=== PATIENT | female | born 1995 | race Caucasian/White ===

== ENCOUNTER 2019-07-15 03:49 | Outpatient (CLI) | payer BC ==
[2019-07-15 04:49] LABS: URINE AMPHETAMINES SCREEN NEGATIVE; URINE BARBITURATES SCREEN NEGATIVE; URINE BENZODIAZEPINES SCREEN NEGATIVE; URINE COCAINE SCREEN NEGATIVE; URINE MARIJUANA (THC) SCREEN NEGATIVE; URINE PHENCYCLIDINE SCREEN NEGATIVE
[2019-07-15 04:59] LABS: APPEARANCE,URINE SLIGHTLY-CLOUDY; BILIRUBIN,URINE NEGATIVE (NEGATIVE); COLOR,URINE YELLOW; GLUCOSE, URINE NEGATIVE (NEGATIVE); KETONES,URINE NEGATIVE (NEGATIVE); LEUKOCYTE ESTERASE,URINE LARGE (NEGATIVE); NITRITE,URINE NEGATIVE (NEGATIVE); PROTEIN,URINE NEGATIVE (NEGATIVE); URINE SPECIFIC GRAVITY 1.009; UROBILINOGEN,URINE NEGATIVE mg/dL (<2.0)
[2019-07-15 05:09] LABS: URINE METHADONE SCREEN NEGATIVE
[2019-07-15] MEDS ORDERED: HYDROXYZINE PAMOATE 50 MG CAPSULE PO ONE (05:11)
[2019-07-15] MEDS ORDERED: HYDROXYZINE PAMOATE 50 MG CAPSULE ONE (05:12)
== END 2019-07-15 05:58 | disposition home or self-care (01) ==
LOC: LC 03:49
PROVIDERS: ATTEND Specialist
PROC: 4A1HXCZ Monitoring of Products of Conception, Cardiac Rate, External Approach (ICD-10-PCS; principal; 2019-07-15)
DX: O47.03 False labor before 37 completed weeks of gestation, third trimester (principal); Z3A.30 30 weeks gestation of pregnancy
CPT/HCPCS: 80307; 81001

== ENCOUNTER 2019-09-30 03:58 | Inpatient (IN) | payer OTHER, BC, MEDICAID ==
[2019-09-30] MEDS ORDERED: OXYTOCIN 10 UNIT/ML VIAL ONE (04:14)
[2019-09-30] MEDS ORDERED: LIDOCAINE 1% INJ-PF (10 MG/ML) 30 ML SDV ONE (04:14)
[2019-09-30] MEDS ORDERED: RINGERS SOLUTION,LACTATED 1,000 ML IV PRN (04:14)
[2019-09-30] MEDS ORDERED: RINGERS SOLUTION,LACTATED 1,000 ML IV ONE (04:14)
[2019-09-30] MEDS ORDERED: MISOPROSTOL 0.2 MG TABLET ONE (04:14)
[2019-09-30] MEDS ORDERED: OXYTOCIN/NORMAL SALINE 20 UNIT/1,000 ML RTUINJ ONE (04:15)
--- NOTE | 2019-09-30 04:22 | Admission Physical ---
Datetime Report Generated by CPN: 09/30/2019 04:21 CURRENT ADMISSION Chief Complaint: Uterine Contractions Indication for Induction: Not Applicable Admit Impression : Term, Intrauterine ; Active Labor Admit Plan: Admit to Unit; Initiate Labor Protocol ALLERGIES Medication Allergies: No Medication Allergies: No Known Allergies (09/30/2019) Latex: No Latex Allergies OBSTETRICAL HISTORY EDC: 09/20/2019 00:00 : 1 Para: 0 Gestational Diabetes: No Rh Sensitization: No Incompetent Cervix: No VEE: No Infertility: No ART Treatment: No Uterine Anomaly: No IUGR: No Hx Previous C/S: No Macrosomia: No Hx Loss/Stillborn: No PIH: No Hx : No Placenta Previa/Abruption: No Depression/PP Depression: No PTL/PROM: No Post Hemorrhage: No Current Procedures: Ultrasound Obstetrical History Comments: g1 - current SEE RECORDS Alcohol: No Marijuana : No Cocaine: No Other Illicit Drugs: No Cigarettes: Never Smoker. 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 Surgery: No Heart Disease: No Hosp/Surgery: No Autoimmune Disorder: No Anesthetic Complications: No Kidney Disease: No Abnormal Pap Smear: Yes Neuro/Epilepsy: No Psychiatric Disorders: No Other Medical Diseases: No Hepatitis/Liver Disease: No Significant Family History: No Varicosities/Phlebitis: No Trauma/Violence : No Thyroid Dysfunction: No Medical History Comments: abnl pap 2012 (Annotations: Data stored by [facility] on behalf of user) INFECTIOUS HISTORY Gonorrhea: No Genital Herpes: No Chlamydia: Yes Tuberculosis: No Syphilis: No Hepatitis: No HIV/AIDS Exposure: No Rash or Viral Illness: No HPV: No Infectious History Comments: 2012 chlamydia PHYSICAL EXAM General: Normal HEENT: Normal Neurologic: Normal Thyroid: Deferred Heart: Normal Lungs: Normal Breast: Deferred Back: Normal Abdomen: Normal Genitourinary Exam: Normal Extremities: Normal DTRs: Normal Pelvic Type: Adequate Vital Signs: Reviewed VAGINAL EXAM Dilatation: 7 Effacement: 80 Station: -1 Contraction Comments: q2-3 MEMBRANES Membranes: Intact FETUS A EGA: 41.3 Monitoring: External US FHR- Baseline: 140 Variability: Moderate 6-25bpm Accelerations: 15X15 Decelerations: None FHR Category: Category I Presentation: Vertex Admit Comment: 24yo at 41+3ega presents with regular uterine contractions and in active labor. GBS negative (done on 08/29/19). Not with father of baby. material planner placed. vertex. uncomplicated. Denies h/o HSV. No GDM or HTN. Admit to labor and delivery and anticipate . PLANS FOR LABOR AND DELIVERY Labor and Delivery: None Pain Management: Epidural Feeding Preference: Breast Benefit of Breast Feed Discussed: Yes Circumcision: N/A INFORMED CONSENT Informed Consent Obtained: Vaginal Delivery; Risks, Benefits and Alternatives Discussed Signature: with User ID: [email or web address]
[2019-09-30 04:26] LABS: APPEARANCE,URINE CLOUDY; BILIRUBIN,URINE NEGATIVE (NEGATIVE); GLUCOSE, URINE NEGATIVE (NEGATIVE); KETONES,URINE TRACE mg/dL (NEGATIVE); LEUKOCYTE ESTERASE,URINE LARGE (NEGATIVE); NITRITE,URINE NEGATIVE (NEGATIVE); PROTEIN,URINE 100 mg/dL (NEGATIVE); URINE SPECIFIC GRAVITY 1.031; UROBILINOGEN,URINE NEGATIVE mg/dL (<2.0)
[2019-09-30 04:29] LABS: COLOR,URINE DARK YELLOW
[2019-09-30] MEDS ORDERED: ONDANSETRON HCL INJ/PF 4 MG/2 ML SDV ONE (04:38)
[2019-09-30 04:51] LABS: URINE AMPHETAMINES SCREEN NEGATIVE; URINE BARBITURATES SCREEN NEGATIVE; URINE BENZODIAZEPINES SCREEN NEGATIVE; URINE COCAINE SCREEN NEGATIVE; URINE MARIJUANA (THC) SCREEN NEGATIVE; URINE METHADONE SCREEN NEGATIVE; URINE PHENCYCLIDINE SCREEN NEGATIVE
[2019-09-30 05:10] LABS: ABSOLUTE LYMPHOCYTES (AUTO) 1.5 10^3/uL (0.5-4.7); ABSOLUTE MONOCYTES (AUTO) 0.7 10^3/uL (0.1-1.4); ABSOLUTE NEUT (AUTO) 10.6 10^3/uL (1.7-8.2); BASOPHILS % (AUTO) 0.3 % (0-2); EOSINOPHILS % (AUTO) 0.1 % (0-6); HEMATOCRIT 34.7 % (36.0-47.0); HEMOGLOBIN 11.6 g/dL (12.0-15.5); LYMPHOCYTES % (AUTO) 11.9 % (13-45); MEAN CORPUSCULAR HGB CONC 33.4 g/dL (32.0-36.0); MEAN CORPUSCULAR VOLUME 84 fl (80-97); MONOCYTES % (AUTO) 5.4 % (3-13); PLATELET COUNT 244 10^3/uL (150-450); RED BLOOD COUNT 4.14 10^6/uL (3.72-5.28); RED CELL DISTRIBUTION WIDTH 15.2 % (11.5-14.0); SEGMENTED NEUTROPHILS % (AUTO) 82.3 % (42-78); TOTAL CELLS COUNTED % (AUTO) 100 %; WHITE BLOOD COUNT 12.9 10^3/uL (4.0-10.5)
[2019-09-30] MEDS ORDERED: FENTANYL CITRATE INJ/PF 100 MCG/2 ML AMPUL ONE (06:13)
[2019-09-30] MEDS ORDERED: DIBUCAINE 1% OINTMENT 28 GM TP PRN (06:16)
[2019-09-30] MEDS ORDERED: GLYCERIN/WITCH HAZEL LEAF 1 EACH MED..WIPE TP PRN (06:16)
[2019-09-30] MEDS ORDERED: MEASLES,MUMPS&RUBELLA VACC/PF 0.5 ML VIAL SUBCUT PRN (06:16)
[2019-09-30] MEDS ORDERED: ACETAMINOPHEN 650 MG SUPP.RECT PR PRN (06:16)
[2019-09-30] MEDS ORDERED: PROMETHAZINE HCL INJ 25 MG/1 ML VIAL IV PRN (06:16)
[2019-09-30] MEDS ORDERED: PROMETHAZINE HCL 25 MG SUPP.RECT PR PRN (06:16)
[2019-09-30] MEDS ORDERED: ACETAMINOPHEN WITH CODEINE #3 TABLET PO PRN ×2 (06:16)
[2019-09-30] MEDS ORDERED: NA PHOS,M-B/NA PHOS,DI-BA (ADULT) 133 ML ENEMA PR PRN (06:16)
[2019-09-30] MEDS ORDERED: PROMETHAZINE HCL 25 MG TABLET PO PRN (06:16)
[2019-09-30] MEDS ORDERED: ZOLPIDEM TARTRATE 5 MG TABLET PO PRN (06:16)
[2019-09-30] MEDS ORDERED: BENZOCAINE/MENTHOL AEROSOL SPRAY 56 ML TOP PRN (06:16)
[2019-09-30] MEDS ORDERED: DIPHENHYDRAMINE HCL 25 MG CAPSULE PO PRN (06:16)
[2019-09-30] MEDS ORDERED: OXYTOCIN/NORMAL SALINE 20 UNIT/1,000 ML RTUINJ IV PRN (06:16)
[2019-09-30] MEDS ORDERED: MAGNESIUM HYDROXIDE SUSP 30 ML UDCUP PO PRN (06:16)
[2019-09-30] MEDS ORDERED: PSEUDOEPHEDRINE HCL 30 MG TABLET PO PRN (06:16)
[2019-09-30] MEDS ORDERED: DIPH/PERTUSS(ACELL)/TETANUS VAC/PF 0.5 ML SYR (>=10YO) IM PRN (06:16)
--- NOTE | 2019-09-30 08:19 | Delivery Summary ---
Del Sum A-C Datetime Report Generated by CPN: 09/30/2019 08:18 DELIVERY PERSONNEL DELIVERY PERSONNEL: [id number] Delivery Doctor:: Salena Gallegos MD Labor and Delivery Nurse:: Cassidy Soriano RNlast marker Nurse:: Kimberley Duque RN Nursery Nurse:: ANTONIO Arizmendi Network Liaison/CHEMICAL MILLING PROCESSOR: Neida Green, ST MATERNAL INFORMATION Delivery Anesthesia: Pudendal Medications After Delivery: Pitocin Bolus-Please Comment Meds After Delivery Comment: pitocin 20 units in 1000 ml NSS Estimated Blood Loss (ml): 50 Delivery QBL: 50 Maternal Complications: None Provider Comments: C/C/+1 and patient not going to make epidural. Consented for pudendal block. Pudendal block performed in usual fashion. VFI delivered in [place] presentation with very tight nuchal cord and left arm cord. Shoulders and body delivered without difficulty. Cord doubly clamped and cut and infant to maternal abdomen for NRP. Placenta delivered intact spontaneously. Small amount of trailing membranes removed with manual exploration. FF at U. 1st degree laceration repaired with good hemostasis. Mother and baby stable upon provider leaving the room. LABOR SUMMARY EDC: 09/20/2019 00:00 No. Babies in Womb: 1 Attempted: No Labor Anesthesia: None LABOR INFORMATION Reason for Induction: Not Applicable Onset of Labor: 09/29/2019 22:00 Complete Dilatation: 09/30/2019 05:31 Oxytocin: N/A Group B Beta Strep: negative Antibiotics # of Doses: none Antibiotics Time of Last Dose: n/a Name of Antibiotic Given: n/a Steroids Given: None Reason Steroids Not Administered: Not Applicable MEMBRANES Membranes Rupture Method: Spontaneous Rupture of Membranes: 09/30/2019 04:48 Length of Rupture (hr): 1.13 Amniotic Fluid Color: Light Meconium Amniotic Fluid Amount: Moderate Amniotic Fluid Odor: Normal STAGES OF LABOR Stage 1 hr: 7 Stage 1 min: 31 Stage 2 hr: 0 Stage 2 min: 25 Stage 3 hr: 0 Stage 3 min: 3 Total Time in Labor hr: 7 Total Time in Labor min: 59 VAGINAL DELIVERY Episiotomy: None Laceration #1: Perineal Laceration Extension #1: First Degree Laceration Repair: Yes Laceration Repair Note: 1st degree perineal laceration repaired with good hemostasis. Sponge Count Correct: Yes Sharps Count Correct: Yes CSECTION DELIVERY Primary Indication: N/A Secondary Indication: N/A CSection Incidence: N/A Labor: N/A Elective: N/A CSection Incision: N/A BABY A INFORMATION Delivery Date/Time: 09/30/2019 05:56 Method of Delivery: Vaginal Nurse Controlled Delivery: No Born in Route : No : N/A Forceps: N/A Vacuum Extraction: N/A Shoulder Dystocia : No PRESENTATION/POSITION BABY A Presentation: Cephalic Cephalic Presentation: Vertex Vertex Position: Left Occipital Anterior Breech Presentation: N/A PLACENTA INFORMATION BABY A Placenta Delivery Time : 09/30/2019 05:59 Placenta Method of Delivery: Spontaneous Placenta Status: Delivered SCORES BABY A Heart Rate 1 min: >100 bpm Resp Effort 1 min: Good Cry Reflex Irritability 1 min: Cough or Sneeze or Pulls Away Muscle Tone 1 min: Active Motion Color 1 min: Body [place], Extremities Blue Resuscitation Effort 1 min: Tactile Stimulation SCORE 1 MIN: 9 Heart Rate 5 min: >100 bpm Resp Effort 5 min: Good Cry Reflex Irritability 5 min: Cough or Sneeze or Pulls Away Muscle Tone 5 min: Active Motion Color 5 min: Body [place], Extremities Blue Resuscitation Effort 5 min: Tactile Stimulation SCORE 5 MIN: 9 INFANT INFORMATION BABY A Gestational Age at Delivery: 41.3 Gestational Status: Late Term- 41- 41.6 Weeks Infant Outcome : Liveborn Infant Condition : Stable Sex: Female IDENTIFICATION BABY A Verification Date/Time: 09/30/2019 06:12 ID Band Number: [id number] Mother's Name Verified: Yes Infant RN Verifying Infant: sara duque. RN Additional Verifying Personnel: Suzanne Soriano RN WEIGHT/LENGTH BABY A Birthweight (gm): 3210 Weight (lb): 7 Infant Weight (oz): 1 Length (in): 21.00 Length (cm): 53.34 CORD INFORMATION BABY A No. Cord Vessels: 3 Nuchal Cord : Around Neck x1, Loose Nuchal Cord- Other: arm Cord Blood Taken: Yes-For Eval (Mom's Blood Type - or O+) Suction: Mouth; Nose ASSESSMENT BABY A Complications: None Physical Findings at Delivery: Within Normal Limits Respirations: Appears Normal Skin to Skin: Yes Development Executive/ALS Called : No Infant Care By: D Bellavance RN Transferred To: Remains with Mother BABY B INFORMATION : N/A SIGNATURES Signature: with User ID: [email or web address]
[2019-09-30] MEDS: SENNOSIDES/DOCUSATE 8.6-50 MG 1 EACH TABLET PO SCH (09:21)
[2019-09-30] MEDS: DOCUSATE SODIUM 100 MG CAPSULE PO SCH ×2 (09:21→17:41)
[2019-09-30] MEDS: FAMOTIDINE 20 MG TABLET PO SCH ×2 (09:21→21:13)
[2019-09-30] MEDS: FERROUS SULFATE 325 MG TABLET PO SCH ×2 (09:21→17:41)
[2019-09-30] MEDS: PRENATAL VITAMIN W DHA CAPSULE PO SCH (09:21)
[2019-09-30] MEDS: IBUPROFEN 800 MG TABLET PO SCH ×2 (14:02→21:12)
[2019-10-01] MEDS: IBUPROFEN 800 MG TABLET PO SCH ×3 (05:19→21:26)
[2019-10-01 07:19] LABS: HEMATOCRIT 29.4 % (36.0-47.0); HEMOGLOBIN 9.9 g/dL (12.0-15.5); MEAN CORPUSCULAR HEMOGLOBIN 28.4 pg (27.0-33.4); MEAN CORPUSCULAR HGB CONC 33.7 g/dL (32.0-36.0); MEAN CORPUSCULAR VOLUME 84 fl (80-97); PLATELET COUNT 199 10^3/uL (150-450); RED BLOOD COUNT 3.49 10^6/uL (3.72-5.28); RED CELL DISTRIBUTION WIDTH 15.2 % (11.5-14.0); WHITE BLOOD COUNT 12.3 10^3/uL (4.0-10.5)
--- NOTE | 2019-10-01 09:37 | PDOC PROGRESS REPORT ---
Subjective-OB Progress Note for:: 10/01/19 Subjective: Holding baby, mother in room , no c/o, , voiding, eating well Physical Exam (OB) Vital Signs: Temp Pulse Resp BP Pulse Ox 98.0 F 67 16 96/54 L 97 10/01/19 07:21 10/01/19 07:21 10/01/19 07:21 10/01/19 07:21 10/01/19 07:21 Intake & Output 09/30/19 10/01/19 10/02/19 06:59 06:59 06:59 Intake Total 600 Balance 600 Weight 78.2 kg - PIH/Pre-Eclampsia DTR's: 1 + Clonus: Negative Headache: Absent Epigastric Pain: No Visual Changes: No - Lochia Lochia Amount: Small 10-25 ml Lochia Color: Rubra/Red - Abdomen Description: Soft Hernia Present: No Fundal Description: Firm Fundal Height: u/u - u/2 Objective-Diagnostic Laboratory: 10/01/19 06:48 10/01/19 06:48 WBC 12.3 H RBC 3.49 L Hgb 9.9 L Hct 29.4 L MCV 84 MCH 28.4 MCHC 33.7 RDW 15.2 H Plt Count 199 Assessment and Plan(PN) - Assessment and Plan (1) Obstetrical laceration, first degree Is this a current diagnosis for this admission?: Yes (2) Post-term , 40-42 weeks of gestation Is this a current diagnosis for this admission?: Yes (3) Vaginal delivery Is this a current diagnosis for this admission?: Yes - Time Spent with Patient Time with patient: Less than 15 minutes Medications reviewed and adjusted accordingly: Yes - Disposition Anticipated Discharge: Home
[2019-10-01] MEDS: DOCUSATE SODIUM 100 MG CAPSULE PO SCH ×2 (10:18→17:32)
[2019-10-01] MEDS: PRENATAL VITAMIN W DHA CAPSULE PO SCH (10:18)
[2019-10-01] MEDS: FERROUS SULFATE 325 MG TABLET PO SCH ×2 (10:18→17:32)
[2019-10-01] MEDS: SENNOSIDES/DOCUSATE 8.6-50 MG 1 EACH TABLET PO SCH (10:18)
[2019-10-01] MEDS: FAMOTIDINE 20 MG TABLET PO SCH ×2 (10:18→21:26)
[2019-10-02] MEDS: IBUPROFEN 800 MG TABLET PO SCH (05:10)
[2019-10-02 07:48] VITALS: BP 134/90
--- NOTE | 2019-10-02 09:10 | PDOC DISCHARGE SUMMARY ---
Impression - Admit/DC Date/PCP Admission Date/Primary Care Provider: 09/30/19 04:19 CARLIE DAVENPORT MD Discharge Date: 10/02/19 - PP Day #2, doing well, no complaints, O+. Rubella Immune, . - Additional Information Resuscitation Status: Full Code Discharge Diet: As Tolerated, Regular Discharge Activity: Activity As Tolerated, No Lifting Over 10 Pounds, Pelvic Rest Referrals: CARLIE DAVENPORT MD [Primary Care Provider] - Prescriptions: Ibuprofen [Motrin 800 mg Tablet] 800 mg PO Q8 #60 tablet Famotidine [Pepcid 20 mg Tablet] 20 mg PO Q12 #60 tablet Home Medications: Pnv No.95/Ferrous Fum/Folic AC [ Caplet] 1 tab PO DAILY 09/30/19 Famotidine [Pepcid 20 mg Tablet] 20 mg PO Q12 #60 tablet 10/02/19 Ibuprofen [Motrin 800 mg Tablet] 800 mg PO Q8 #60 tablet 10/02/19 HPI Reason(s) for Admission: Induction of Labor Procedures: Ultrasound Intrapartum Procedure(s): Spontaneous Vaginal Delivery Complication(s): Laceration-Vaginal Laceration-Degree: 1st Hospital Course Hospital Course: routine Results Laboratory Results: WBC 12.3 10^3/uL (4.0-10.5) H 10/01/19 06:48 RBC 3.49 10^6/uL (3.72-5.28) L 10/01/19 06:48 Hgb 9.9 g/dL (12.0-15.5) L 10/01/19 06:48 Hct 29.4 % (36.0-47.0) L 10/01/19 06:48 MCV 84 fl (80-97) 10/01/19 06:48 MCH 28.4 pg (27.0-33.4) 10/01/19 06:48 MCHC 33.7 g/dL (32.0-36.0) 10/01/19 06:48 RDW 15.2 % (11.5-14.0) H 10/01/19 06:48 Plt Count 199 10^3/uL (150-450) 10/01/19 06:48 Lymph % (Auto) 11.9 % (13-45) L 09/30/19 04:53 [place] % (Auto) 5.4 % (3-13) 09/30/19 04:53 Eos % (Auto) 0.1 % (0-6) 09/30/19 04:53 Baso % (Auto) 0.3 % (0-2) 09/30/19 04:53 Absolute Neuts (auto) 10.6 10^3/uL (1.7-8.2) H 09/30/19 04:53 Absolute Lymphs (auto) 1.5 10^3/uL (0.5-4.7) 09/30/19 04:53 Absolute Monos (auto) 0.7 10^3/uL (0.1-1.4) 09/30/19 04:53 Absolute Eos (auto) 0.0 10^3/uL (0.0-0.6) 09/30/19 04:53 Absolute Basos (auto) 0.0 10^3/uL (0.0-0.2) 09/30/19 04:53 Seg Neutrophils % 82.3 % (42-78) H 09/30/19 04:53 Urine Color DARK YELLOW 09/30/19 04:09 Urine Appearance CLOUDY 09/30/19 04:09 Urine pH 5.0 (5.0-9.0) 09/30/19 04:09 Ur Specific [place] 1.031 09/30/19 04:09 Urine Protein 100 mg/dL (NEGATIVE) H 09/30/19 04:09 Urine Glucose (UA) NEGATIVE mg/dL (NEGATIVE) 09/30/19 04:09 Urine Ketones TRACE mg/dL (NEGATIVE) H 09/30/19 04:09 Urine Blood LARGE (NEGATIVE) H 09/30/19 04:09 Urine Nitrite NEGATIVE (NEGATIVE) 09/30/19 04:09 Urine Bilirubin NEGATIVE (NEGATIVE) 09/30/19 04:09 Urine Urobilinogen NEGATIVE mg/dL (<2.0) 09/30/19 04:09 Ur Leukocyte Esterase LARGE (NEGATIVE) H 09/30/19 04:09 Urine Ascorbic Acid NEGATIVE (NEGATIVE) 09/30/19 04:09 Urine Opiates Screen NEGATIVE 09/30/19 04:09 Urine Methadone Screen NEGATIVE 09/30/19 04:09 Ur Barbiturates Screen NEGATIVE 09/30/19 04:09 Ur Phencyclidine Scrn NEGATIVE 09/30/19 04:09 Ur Amphetamines Screen NEGATIVE 09/30/19 04:09 U Benzodiazepines Scrn NEGATIVE 09/30/19 04:09 Urine Cocaine Screen NEGATIVE 09/30/19 04:09 U Marijuana (THC) Screen NEGATIVE 09/30/19 04:09 RPR NONREACTIVE (NONREACTIVE) 09/30/19 04:53 Blood Type O POSITIVE 09/30/19 04:53 Antibody Screen NEGATIVE 09/30/19 04:53 Plan Health Concerns: iron rich foods Plan of Treatment: d/c home. F/up with [facility] in 4 wks
[2019-10-02] MEDS: SENNOSIDES/DOCUSATE 8.6-50 MG 1 EACH TABLET PO SCH (09:58)
[2019-10-02] MEDS: PRENATAL VITAMIN W DHA CAPSULE PO SCH (09:58)
[2019-10-02] MEDS: DOCUSATE SODIUM 100 MG CAPSULE PO SCH (09:58)
[2019-10-02] MEDS: FERROUS SULFATE 325 MG TABLET PO SCH (09:58)
[2019-10-02] MEDS: FAMOTIDINE 20 MG TABLET PO SCH (09:59)
== END 2019-10-02 13:05 | disposition home or self-care (01) | DRG 807 ==
LOC: LC 03:58 → LR 04:19 → 2S 09:12
PROVIDERS: ADMIT Student in an Organized Health Care Education/Training Program; ATTEND Student in an Organized Health Care Education/Training Program
PROC: 10E0XZZ Delivery of Products of Conception, External Approach (ICD-10-PCS; principal; 2019-09-30)
PROC: 10D17Z9 Manual Extraction of Products of Conception, Retained, Via Natural or Artificial Opening (ICD-10-PCS; 2019-09-30)
PROC: 0HQ9XZZ Repair Perineum Skin, External Approach (ICD-10-PCS; 2019-09-30)
DX: O70.0 First degree perineal laceration during delivery (principal); Z37.0 Single live birth; O69.1XX0 Labor and delivery complicated by cord around neck, with compression, not applicable or unspecified; Z3A.41 41 weeks gestation of pregnancy
CPT/HCPCS: 36415; 80307; 81005; 85025; 85027; 86592; 86850; 86900; 86901; J2405; J2590; J3010; J3490